=== PATIENT | female | born 1980 | race Caucasian/White ===

== ENCOUNTER 2020-08-21 19:30 | Emergency (ER) | payer BC ==
[~2020-08-21] VITALS: Ht 162.6 cm; Wt 63.5 kg
[2020-08-21] MEDS ORDERED: ESCITALOPRA5 MG/5 ML PO (19:48)
[2020-08-21] MEDS ORDERED: PRINIVIL10 MG PO (19:48)
[2020-08-21 20:09] LABS: ABSOLUTE BASOPHILS 0.1 thou/uL (0.0-0.2); ABSOLUTE EOSINOPHILS 0.2 thou/uL (0.0-0.7); ABSOLUTE LYMPHOCYTES 1.7 thou/uL (0.8-5.3); ABSOLUTE MONOCYTES 0.7 thou/uL (0.0-1.2); ABSOLUTE NEUTROPHILS 9.4 thou/uL (1.6-8.1); BASOPHILS 0.4 %; EOSINOPHILS 1.4 %; HEMATOCRIT 44.7 % (37.0-47.0); HEMOGLOBIN 15.1 gm/dL (12.0-15.0); LYMPHOCYTES 13.8 %; MCH 31.9 pg (26.0-34.0); MCHC 33.7 g/dL (28.0-37.0); MCV 94.5 fL (80.0-100.0); MPV 7.3 fl. (7.2-11.1); NUCLEATED RBCS 0 /100WBC; PLATELET COUNT* 289 thou/uL (150-400); POLYS 78.4 %; RBC 4.73 mil/uL (4.20-5.00); RDW-CV 12.4 % (10.5-14.5); WBC 12.1 thou/uL (4.0-11.0)
[2020-08-21 20:16] LABS: CALCIUM 9.6 mg/dL (8.5-10.1); CREATININE 0.9 mg/dL (0.6-1.3); POTASSIUM 3.2 mmol/L (3.5-5.1)
[2020-08-21 20:20] LABS: TOTAL BILIRUBIN 0.6 mg/dL (<0.1-1.0); TOTAL PROTEIN 7.5 g/dL (6.4-8.2)
[2020-08-21] MEDS ORDERED: BENTYL 10 MG CA10 MG PO (21:51)
[2020-08-21] MEDS ORDERED: IBUPROFEN 600600 M1 PO (21:51)
[2020-08-21] MEDS ORDERED: ZOFRAN ODT4 MG PO (21:52)
[2020-08-21 21:53] LABS: URINE BILIRUBIN NEGATIVE (Negative); URINE BLOOD TRACE (Negative); URINE CLARITY CLEAR; URINE COLOR YELLOW; URINE GLUCOSE-RANDOM NEGATIVE (Negative); URINE KETONES 1+ (Negative); URINE LEUKOCYTES-REFLEX NEGATIVE (Negative); URINE NITRITE-REFLEX NEGATIVE (Negative); URINE PROTEIN NEGATIVE (Negative); URINE SPECIFIC GRAVITY <= 1.005 (1.005-1.030); URINE UROBILINOGEN 0.2 E.U./dl (0.2-1.0)
[2020-08-21 22:18] VITALS: BP 108/63
--- NOTE | 2020-08-22 13:39 | EKG ---
[place] [address] ELECTROCARDIOGRAM REPORT Name: SUSYHALLEY CATES Room: [facility]#: [id number] Admission: 08/21/20 Attend Phys: Discharge: 08/21/20 Date of : 78 Date of Service: 08/21/202008 Report #: [id number] THIS REPORT FOR: //name// [facility] ED Test Date: 2020-08-21 Test Time: 20:09:02 Pat Name: HALLEY JAIN Department: Room: Gender: [employer]: [place] : 1980 Requested By: Isabella Lambert Order Number: [id number] MD: Conner Jovel Measurements Intervals [place] Rate: 85 P: 29 MI: 125 QRS: 77 QRSD: 93 T: 28 QT: 369 QTc: 439 Interpretive Statements Sinus rhythm No previous ECG available for comparison Electronically Signed On 08-22-2020 13:38:52 CRIMPER OPERATOR by Conner Jovel [email or web address] <ELECTRONICALLY SIGNED> By: Conner Jovel MD, [facility] 08/22/20 1338 08 08 Conner Jovel MD, FACC /EPI
== END 2020-08-21 22:18 | disposition home or self-care (01) ==
LOC: M.ERS 19:30
PROVIDERS: Nurse Practitioner Family
DX: K52.9 Noninfective gastroenteritis and colitis, unspecified (principal); I10 Essential (primary) hypertension; Z79.899 Other long term (current) drug therapy